=== PATIENT | female | born 1935 ===

== ENCOUNTER 2017-06-22 17:30 | Emergency (ER) | payer MEDICARE, OTHER ==
[2017-06-22 18:23] VITALS: TEMP 96.8
--- NOTE | 2017-06-22 18:25 | ED PDOC ---
Arrival/HPI - History of Present Illness Time/Duration: 1 hour Symptom Onset: Sudden Symptom Course: Resolved Quality: Cramping Severity Level: 3 Activities at Onset: Rest Context: Sitting, Home <FREDI SCHULTZ - Last Filed: 06/22/17 22:02> <Iram Dodd - Last Filed: 06/22/17 22:07> - General Chief Complaint: Dizziness/Lightheaded - History of Present Illness Narrative History of Present Illness (Text): 06/22/17 18:14 81yo F PMH dementia, HTN, pre-diabetes, and HLD who presents with one episode of nausea and vomiting earlier today. Per daughter, the pt was dizzy, vomited and urinated herself an hour prior to presentation. Daughter states that the pt had rice earlier in the morning and a cup of milk when she was feeling nauseous which she threw up. Pt denied feeling dizzy and says she was just nauseous, however the family insists that the pt was dizzy. PMD: Dr. Duke Mora Cardio: Dr. Metz PSH: endarterectomy SHx: denied tobacco, ETOH or substance abuse (FREDI SCHULTZ) Past Medical History - Provider Review Nursing Documentation Reviewed: Yes - Past History Past History: Non-Contributing - Infectious Disease Hx of Infectious Diseases: None - Reproductive Menopause: Yes - Cardiac Hx Cardiac Disorders: Yes Hx Hyperlipemia: Yes Hx Hypertension: Yes - Pulmonary Hx Respiratory Disorders: No - Neurological Hx Neurological Disorder: Yes Hx Dementia: Yes - HEENT Hx HEENT Disorder: No - Endocrine/Metabolic Hx Diabetes Mellitus Type 2: Yes - Psychiatric Hx Substance Use: No - Anesthesia Hx Anesthesia: No <FREDI SCHULTZ - Last Filed: 06/22/17 22:02> Family/Social History - Physician Review Nursing Documentation Reviewed: Yes Family/Social History: No Known Family HX Smoking Status: Unknown If Ever Smoked Hx Alcohol Use: No Hx Substance Use: No <FREDI SCHULTZ - Last Filed: 06/22/17 22:02> Allergies/Home Meds <FREDI SCHULTZ - Last Filed: 06/22/17 22:02> <Iram Dodd - Last Filed: 06/22/17 22:07> Allergies/Adverse Reactions: Allergies aspirin Allergy (Verified 06/22/17 17:47) RASH Home Medications: Home Meds Medication Instructions Recorded Confirmed Amlodipine/Valsartan/Hcthiazid 1 tab PO DAILY 06/22/17 06/22/17 [Nkbttxllfy-Nrovqyfce-Mmoknghlfteegvgmayv 10 M] Memantine HCl/Donepezil HCl 1 each PO DAILY 06/22/17 06/22/17 [Namzaric 28 mg-10 mg Capsule] Review of Systems - Physician Review All systems were reviewed & negative as marked: Yes - Review of Systems Constitutional: Normal. absent: Fatigue, Fevers, Night Sweats Respiratory: absent: SOB, Cough Cardiovascular: Normal. absent: Chest Pain Gastrointestinal: Nausea, Vomiting (x1, non-bloody) <FREDI SCHULTZ - Last Filed: 06/22/17 22:02> Physical Exam Vital Signs Reviewed: Yes Appearance: Positive for: Well-Appearing Pain Distress: None Mental Status: Positive for: Alert and Oriented X 3 - Systems Exam Head: Present: Atraumatic, Normocephalic Pupils: Present: PERRL Extroacular Muscles: Present: EOMI Conjunctiva: Present: Normal Neck: Present: Normal Range of Motion Respiratory/Chest: Present: Clear to Auscultation, Good Air Exchange. No: Respiratory Distress Cardiovascular: Present: Regular Rate and Rhythm, Normal S1, S2 Abdomen: Present: Normal Bowel Sounds. No: Tenderness, Distention, Peritoneal Signs Back: Present: Normal Inspection. No: CVA Tenderness Lower Extremity: Present: Normal Inspection. No: Edema, CALF TENDERNESS Neurological: Present: Speech Normal, Motor Func Grossly Intact, Normal Sensory Function Skin: Present: Warm, Dry Psychiatric: Present: Alert. No: Oriented x 3 (oriented x2 (person and place NOT time)) <FREDI SCHULTZ - Last Filed: 06/22/17 22:02> Vital Signs Temp Pulse Resp BP Pulse Ox 06/22/17 21:10 75 18 175/57 H 96 06/22/17 17:46 96.8 F L 62 17 126/76 97 Medical Decision Making <FREDI SCHULTZ - Last Filed: 06/22/17 22:02> <Iram Dodd - Last Filed: 06/22/17 22:07> ED Course and Treatment: 06/22/17 19:21 Impression: viral gastroenteritis Plan: -- Reassess and disposition - cxr - ekg - ua - labs Progress Notes: patient was reassessed and is resting comfortably w/ no complaints of dizziness , n/v or urination. pt is thirsty. allowing PO water intake as tolerated Creator : Daniel Contreras MD Report Date : 06/22/2017 21:09:00 My Comment : CT Scan HEAD W/O CONTRAST Exam Date: 06/22/17 This imaging exam was performed at [facility] EXAM: CT Head Without Intravenous Contrast CLINICAL HISTORY: 81 years old, female; Signs and symptoms; Dizziness; Additional info: Syncope, dizziness and vomiting today TECHNIQUE: Axial computed tomography images of the head/brain without intravenous contrast. All CT scans at this facility use one or more dose reduction techniques, viz.: automated exposure control; ma/kV adjustment per patient size (including targeted exams where dose is matched to indication; i.e. head); or iterative reconstruction technique. COMPARISON: No relevant prior studies available. FINDINGS: Brain: Mild atrophy. Prominent extra-axial spaces along frontal parietal convexities. No intracranial hemorrhage. No mass. No definite edema. Ventricles: No hydrocephalus. Bones/joints: No acute fracture. Soft tissues: Unremarkable. Sinuses: No acute sinusitis. Mastoid air cells: No mastoid effusion. Orbits: Unremarkable as visualized. IMPRESSION: 1. No acute intracranial abnormality. Acute infarction may be CT occult within first 24 hours. If a focal deficit persists, consider followup CT or MRI for further evaluation. 2. Incidental/non-acute findings are described above. 06/22/17 22:02 Dr. Adrian Guerrero was contacted and accepts patient onto her service (FREDI SCHULTZ) 06/22/17 22:06 Patient with syncopal episode; results in the ED are nodiagnostic. However, given the high risk for acs and neuro disease as the patient is elderly with a h /o DM and HTN, she will need to be placed on observation on tele. Discussed with Dr. Colleen Guerrero for placement on the hospitalist service. (Iram Dodd) - Lab Interpretations Lab Results: 06/22/17 19:00 06/22/17 19:00 Lab Results 06/22/17 19:00: Sodium 139, Potassium 3.7, Chloride 97 L, Carbon Dioxide 30, Anion Gap 16, BUN 17, Creatinine 0.7, Est GFR ( Amer) > 60, Est GFR (Non- Af Amer) > 60, Random Glucose 198 H, Calcium 9.8, Total Bilirubin 0.7, AST 23, ALT 20, Alkaline Phosphatase 86, Lactate Dehydrogenase 476, Total Creatine Kinase 48, Troponin I < 0.01, Total Protein 7.7, Albumin 4.4, Globulin 3.2, Albumin/Globulin Ratio 1.4, Lipase 41 06/22/17 19:00: WBC 6.9 D, RBC 4.81, Hgb 13.2, Hct 38.8, MCV 80.7, MCH 27.4, MCHC 34.0, RDW 13.1, Plt Count 208, MPV 10.6, Gran % 81.4 H, Lymph % (Auto) 14.3 L, [place] % (Auto) 3.9, Eos % (Auto) 0.3 L, Baso % (Auto) 0.1, Gran # 5.61, Lymph # 1.0 L, [place] # 0.3, Eos # 0.0, Baso # 0.01 - RAD Interpretation Radiology Orders: 06/22/17 18:35 CHEST TWO VIEWS (PA/LAT) [RAD] Stat 06/22/17 20:05 Brain [HEAD W/O CONTRAST] [CT] Stat - PA / MILLINERY BLOCKER / Resident Statement CLEMENT has reviewed & agrees with the documentation as recorded. CLEMENT has examined the patient and agrees with the treatment plan. <Iram Dodd - Last Filed: 06/22/17 22:07> Disposition/Present on Arrival - Present on Arrival Any Indicators Present on Arrival: No History of DVT/PE: No History of Uncontrolled Diabetes: No Urinary Catheter: No History of Decub. Ulcer: No History Surgical Site Infection Following: Abdominal Surgery, Orthopedic Procedures, None - Disposition Have Diagnosis and Disposition been Completed?: Yes Disposition Time: 21:56 <FREDI SCHULTZ - Last Filed: 06/22/17 22:02> <Iram Dodd - Last Filed: 06/22/17 22:07> - Disposition Diagnosis: Dizziness, Vomiting Disposition: HOSPITALIZED Patient Problems: Current Active Problems Problem Status Onset Dizziness Acute Vomiting Acute Condition: GOOD Referrals: Michael Mora MD [Primary Care Provider] - Follow up with primary Forms: [employer] (Slovak)
[2017-06-22 19:44] LABS: BASO # 0.01 K/mm3 (0.0-2.0); BASO % 0.1 % (0.0-3.0); EOS % 0.3 % (1.5-5.0); GRAN # 5.61 (1.4-6.5); GRAN % 81.4 % (50.0-68.0); HEMATOCRIT 38.8 % (36.0-48.0); LYMPH % 14.3 % (22.0-35.0); MEAN CELL VOLUME 80.7 fl (80.0-105.0); MEAN CORPUSCULAR HEMOGLOBIN 27.4 pg (25.0-35.0); MEAN PLATELET VOLUME 10.6 fl (7.0-11.0); MONO # 0.3 (0.1-0.6); MONO % 3.9 % (1.0-6.0); RED CELL DISTRIBUTION WIDTH 13.1 % (11.5-14.5); WHITE BLOOD COUNT 6.9 10^3/ul (4.5-11.0)
[2017-06-22 20:00] LABS: ALB/GLOB RATIO 1.4 (1.1-1.8); ALKALINE PHOSPHATASE 86 U/L (38-126); ALT/SGPT 20 U/L (7-56); AST/SGOT 23 U/L (14-36); BILIRUBIN,TOTAL 0.7 mg/dL (0.2-1.3); BLOOD UREA NITROGEN 17 mg/dL (7-21); CALCIUM 9.8 mg/dL (8.4-10.5); CARBON DIOXIDE 30 mmol/L (21-33); CHLORIDE 97 mmol/L (98-107); GFR AFRICAN-AMERICAN > 60; GLUCOSE,RANDOM 198 mg/dL (70-110); LIPASE 41 U/L (23-300); POTASSIUM 3.7 mmol/L (3.6-5.0); SODIUM 139 mmol/L (132-148); TOTAL PROTEIN 7.7 g/dL (5.8-8.3)
[2017-06-22 20:11] LABS: TROPONIN I < 0.01 ng/mL
--- NOTE | 2017-06-22 21:09 | CT ---
EXAM: CT Head Without Intravenous Contrast CLINICAL HISTORY: 81 years old, female; Signs and symptoms; Dizziness; Additional info: Syncope, dizziness and vomiting today TECHNIQUE: Axial computed tomography images of the head/brain without intravenous contrast. All CT scans at this facility use one or more dose reduction techniques, viz.: automated exposure control; ma/kV adjustment per patient size (including targeted exams where dose is matched to indication; i.e. head); or iterative reconstruction technique. COMPARISON: No relevant prior studies available. FINDINGS: Brain: Mild atrophy. Prominent extra-axial spaces along frontal parietal convexities. No intracranial hemorrhage. No mass. No definite edema. Ventricles: No hydrocephalus. Bones/joints: No acute fracture. Soft tissues: Unremarkable. Sinuses: No acute sinusitis. Mastoid air cells: No mastoid effusion. Orbits: Unremarkable as visualized. IMPRESSION: 1. No acute intracranial abnormality. Acute infarction may be CT occult within first 24 hours. If a focal deficit persists, consider followup CT or MRI for further evaluation. 2. Incidental/non-acute findings are described above.
[2017-06-22 21:11] VITALS: RESP 18
[2017-06-22 23:12] VITALS: BP 158/72; PULSE 78; O2SAT 98
--- NOTE | 2017-06-23 05:00 | CP.PCM.HP ---
History of Present Illness - History of Present Illness History of Present Illness: H/P For IM - TKS DO, PGY-1 CC: N/V HPI: 81 F presented with one episode of N/V and also complained of confusion. Patient's daughter stated that she also felt dizzy and lost control of her bladder. Pt does not agree that she felt dizzy, just nauseas which made her feel weak to stand or sit up. When I saw the patient, she and her daughter both stated that pt feels completely fine, no longer feels nauseas nor does she feel weak. She believes the rice she ate earlier just made her sick to her stomach. Pt denies f/ch/cp/sob/n/v/d. Pt denies hematuria/dysuria/frequency/urgency/ malodorous urine. Pt further denies hematochezia/hematemesis. She states she does not have a matta, is not dizzy, and per daughter, pt is at her baseline mentation. No further complaints. PSHx: Endarterectomy PMHx: Dementia, HTN, Pre-diabetes, and HLD All: SocHx: Pt denies tobacco, etoh, illicits Hosp: FamHx: Non-contributory Meds: Amlodipine, Memantine PMD: Dr. Duke Mora Cardio: Dr. Metz Present on Admission - Present on Admission Any Indicators Present on Admission: No Review of Systems - Hematologic/Lymphatic Additional comments: ROS: Constitutional: pt denies fever, chills, generalized weakness ENT: pt denies dysphagia, otalgia, hearing deficit, rhinorrhea Eyes: pt denies sudden loss of vision, diplopia, blurred vision MSK: pt denies muscle stiffness, joint pain, extremity cramping Cardio: pt denies sob, heart murmur, cp Pulm: pt denies cough, hemoptysis, wheeze GI: See HPI; pt denies loss of appetite, abdominal pain, constipation, melena : pt denies burning on urination, urinary frequency, hematuria, urinary urgency Neuro: pt denies paresis, paresthesia, dizziness, matta, numbness, tingling Derm: pt denies skin changes, lesions, nail changes Endo: pt denies intolerance to heat/cold, diaphoresis, night sweats, polydipsia Psych: pt denies anxiety, depression, mood changes Past Patient History - Infectious Disease Hx of Infectious Diseases: None - Past Social History Smoking Status: Unknown If Ever Smoked - CARDIAC Hx Cardiac Disorders: Yes Hx Hypertension: Yes - PULMONARY Hx Respiratory Disorders: No - NEUROLOGICAL Hx Neurological Disorder: Yes Hx Dementia: Yes - HEENT Hx HEENT Problems: No - ENDOCRINE/METABOLIC Hx Diabetes Mellitus Type 2: Yes - PSYCHIATRIC Hx Substance Use: No - ANESTHESIA Hx Anesthesia: No Meds Allergies/Adverse Reactions: Allergies Allergy/AdvReac Type Severity Reaction Status Date / Time aspirin Allergy RASH Verified 06/22/17 17:47 Physical Exam - Additional Findings Additional findings: Phys Exam: VS as below Constitutional: a&o x 2 (person and place), nad. Psych: +pt is pleasantly confused, but daughter states at her baseline Head and Neck: neck supple, no jvd, trachea midline, carotid midline, no cervical/head mass Eyes: brittany, nonicteric sclera, eom intact ENT: auditory acuity grossly intact, throat not congested, no nasal deformity Cardio: rrr, no m/r/g, no carotid bruit, nml s1, s2 Pulm: no accessory muscle use, equal nml breath sounds bilaterally, ctab Abd: s/nt/nd, nbs x 4 q, no palpable masses Derm: no rashes, no ulcers, no lesions Extr: no edema, no cyanosis, no calf tenderness, no lesions, no varicosities Neuro: cn II-XII grossly intact, ue and le 5/5 muscle strength bilaterally, no los ue, le bilaterally and core Results - Vital Signs Recent Vital Signs: Last Vital Signs Temp 96.8 F L 06/22/17 17:46 Pulse 78 06/22/17 23:11 Resp 18 06/22/17 23:11 BP 158/72 H 06/22/17 23:11 Pulse Ox 98 06/22/17 23:11 - Labs Result Diagrams: 06/22/17 19:00 06/22/17 19:00 Labs: Laboratory Results - last 24 hr 06/22/17 06/22/17 19:00 19:00 WBC 6.9 D RBC 4.81 Hgb 13.2 Hct 38.8 MCV 80.7 MCH 27.4 MCHC 34.0 RDW 13.1 Plt Count 208 MPV 10.6 Gran % 81.4 H Lymph % (Auto) 14.3 L [place] % (Auto) 3.9 Eos % (Auto) 0.3 L Baso % (Auto) 0.1 Gran # 5.61 Lymph # 1.0 L [place] # 0.3 Eos # 0.0 Baso # 0.01 Sodium 139 Potassium 3.7 Chloride 97 L Carbon Dioxide 30 Anion Gap 16 BUN 17 Creatinine 0.7 Est GFR ( Amer) > 60 Est GFR (Non-Af Amer) > 60 Random Glucose 198 H Calcium 9.8 Total Bilirubin 0.7 AST 23 ALT 20 Alkaline Phosphatase 86 Lactate Dehydrogenase 476 Total Creatine Kinase 48 Troponin I < 0.01 Total Protein 7.7 Albumin 4.4 Globulin 3.2 Albumin/Globulin Ratio 1.4 Lipase 41 Assessment & Plan - Assessment and Plan (Free Text) Assessment: A/P 81 F presented with n/v likely 2/2 gastroenteritis from food Patient AMA - Advised patient on risks of leaving, including possible falls, worsening confusion, possible infection, worsening gastroenteritis, possible permanent disability and even possible . Patient and her daughter understood, but still wanted to leave. Signatures were obtained. TKS DO PGY-1, DW Dr. Adrian Guerrero
--- NOTE | 2017-06-23 05:19 | CP.PCM.DIS ---
<EstefaníaAugie - Last Filed: 06/23/17 05:20> Provider - Provider Primary care physician: Michael Mora MD Time Spent in preparation of Discharge (in minutes): 45 Hospital Course - Lab Results Lab Results: Most Recent Lab Values WBC 6.9 10^3/ul (4.5-11.0) D 06/22/17 19:00 RBC 4.81 10^6/uL (3.5-6.1) 06/22/17 19:00 Hgb 13.2 g/dL (12.0-16.0) 06/22/17 19:00 Hct 38.8 % (36.0-48.0) 06/22/17 19:00 MCV 80.7 fl (80.0-105.0) 06/22/17 19:00 MCH 27.4 pg (25.0-35.0) 06/22/17 19:00 MCHC 34.0 g/dl (31.0-37.0) 06/22/17 19:00 RDW 13.1 % (11.5-14.5) 06/22/17 19:00 Plt Count 208 10^3/uL (120.0-450.0) 06/22/17 19:00 MPV 10.6 fl (7.0-11.0) 06/22/17 19:00 Gran % 81.4 % (50.0-68.0) H 06/22/17 19:00 Lymph % (Auto) 14.3 % (22.0-35.0) L 06/22/17 19:00 [place] % (Auto) 3.9 % (1.0-6.0) 06/22/17 19:00 Eos % (Auto) 0.3 % (1.5-5.0) L 06/22/17 19:00 Baso % (Auto) 0.1 % (0.0-3.0) 06/22/17 19:00 Gran # 5.61 (1.4-6.5) 06/22/17 19:00 Lymph # 1.0 (1.2-3.4) L 06/22/17 19:00 [place] # 0.3 (0.1-0.6) 06/22/17 19:00 Eos # 0.0 (0.0-0.7) 06/22/17 19:00 Baso # 0.01 K/mm3 (0.0-2.0) 06/22/17 19:00 Sodium 139 mmol/L (132-148) 06/22/17 19:00 Potassium 3.7 mmol/L (3.6-5.0) 06/22/17 19:00 Chloride 97 mmol/L (98-107) L 06/22/17 19:00 Carbon Dioxide 30 mmol/L (21-33) 06/22/17 19:00 Anion Gap 16 (10-20) 06/22/17 19:00 BUN 17 mg/dL (7-21) 06/22/17 19:00 Creatinine 0.7 mg/dL (0.5-1.4) 06/22/17 19:00 Est GFR ( Amer) > 60 06/22/17 19:00 Est GFR (Non-Af Amer) > 60 06/22/17 19:00 Random Glucose 198 mg/dL (70-110) H 06/22/17 19:00 Calcium 9.8 mg/dL (8.4-10.5) 06/22/17 19:00 Total Bilirubin 0.7 mg/dL (0.2-1.3) 06/22/17 19:00 AST 23 U/L (14-36) 06/22/17 19:00 ALT 20 U/L (7-56) 06/22/17 19:00 Alkaline Phosphatase 86 U/L (38-126) 06/22/17 19:00 Lactate Dehydrogenase 476 U/L (333-699) 06/22/17 19:00 Total Creatine Kinase 48 U/L (35-230) 06/22/17 19:00 Troponin I < 0.01 ng/mL 06/22/17 19:00 Total Protein 7.7 g/dL (5.8-8.3) 06/22/17 19:00 Albumin 4.4 g/dL (3.0-4.8) 06/22/17 19:00 Globulin 3.2 gm/dL 06/22/17 19:00 Albumin/Globulin Ratio 1.4 (1.1-1.8) 06/22/17 19:00 Lipase 41 U/L (23-300) 06/22/17 19:00 - Hospital Course Hospital Course: 81 F presented with one episode of N/V and also complained of confusion. Patient's daughter stated that she also felt dizzy and lost control of her bladder. Pt does not agree that she felt dizzy, just nauseas which made her feel weak to stand or sit up. When I saw the patient, she and her daughter both stated that pt feels completely fine, no longer feels nauseas nor does she feel weak. She believes the rice she ate earlier just made her sick to her stomach. Pt denies f/ch/cp/sob/n/v/d. Pt denies hematuria/dysuria/frequency/urgency/ malodorous urine. Pt further denies hematochezia/hematemesis. She states she does not have a matta, is not dizzy, and per daughter, pt is at her baseline mentation. No further complaints. Patient AMA - Advised patient on risks of leaving, including possible falls, worsening confusion, possible infection, worsening gastroenteritis, possible permanent disability and even possible . Patient and her daughter understood, but still wanted to leave. Signatures were obtained Discharge Exam - Additional Findings Additional findings: VS as below Constitutional: a&o x 2 (place and person), nad; Pleasantly confused, but at baseline according to daughter Head and Neck: neck supple, no jvd, trachea midline, carotid midline, no cervical/head mass Eyes: brittany, nonicteric sclera, eom intact ENT: auditory acuity grossly intact, throat not congested, no nasal deformity Cardio: rrr, no m/r/g, no carotid bruit, nml s1, s2 Pulm: no accessory muscle use, equal nml breath sounds bilaterally, ctab Abd: s/nt/nd, nbs x 4 q, no palpable masses Derm: no rashes, no ulcers, no lesions Extr: no edema, no cyanosis, no calf tenderness, no lesions, no varicosities Neuro: cn II-XII grossly intact, ue and le 5/5 muscle strength bilaterally, no los ue, le bilaterally and core Discharge Plan - Follow Up Plan Condition: GOOD Disposition: AGAINST MEDICAL ADVICE Patient education suggested?: No Referrals: Michael Mora MD [Primary Care Provider] - <Jael Guerrero - Last Filed: 06/26/17 23:13> Provider - Provider Primary care physician: Michael Mora MD Hospital Course - Lab Results Lab Results: Most Recent Lab Values WBC 6.9 10^3/ul (4.5-11.0) D 06/22/17 19:00 RBC 4.81 10^6/uL (3.5-6.1) 06/22/17 19:00 Hgb 13.2 g/dL (12.0-16.0) 06/22/17 19:00 Hct 38.8 % (36.0-48.0) 06/22/17 19:00 MCV 80.7 fl (80.0-105.0) 06/22/17 19:00 MCH 27.4 pg (25.0-35.0) 06/22/17 19:00 MCHC 34.0 g/dl (31.0-37.0) 06/22/17 19:00 RDW 13.1 % (11.5-14.5) 06/22/17 19:00 Plt Count 208 10^3/uL (120.0-450.0) 06/22/17 19:00 MPV 10.6 fl (7.0-11.0) 06/22/17 19:00 Gran % 81.4 % (50.0-68.0) H 06/22/17 19:00 Lymph % (Auto) 14.3 % (22.0-35.0) L 06/22/17 19:00 [place] % (Auto) 3.9 % (1.0-6.0) 06/22/17 19:00 Eos % (Auto) 0.3 % (1.5-5.0) L 06/22/17 19:00 Baso % (Auto) 0.1 % (0.0-3.0) 06/22/17 19:00 Gran # 5.61 (1.4-6.5) 06/22/17 19:00 Lymph # 1.0 (1.2-3.4) L 06/22/17 19:00 [place] # 0.3 (0.1-0.6) 06/22/17 19:00 Eos # 0.0 (0.0-0.7) 06/22/17 19:00 Baso # 0.01 K/mm3 (0.0-2.0) 06/22/17 19:00 Sodium 139 mmol/L (132-148) 06/22/17 19:00 Potassium 3.7 mmol/L (3.6-5.0) 06/22/17 19:00 Chloride 97 mmol/L (98-107) L 06/22/17 19:00 Carbon Dioxide 30 mmol/L (21-33) 06/22/17 19:00 Anion Gap 16 (10-20) 06/22/17 19:00 BUN 17 mg/dL (7-21) 06/22/17 19:00 Creatinine 0.7 mg/dL (0.5-1.4) 06/22/17 19:00 Est GFR ( Amer) > 60 06/22/17 19:00 Est GFR (Non-Af Amer) > 60 06/22/17 19:00 POC Glucose (mg/dL) 97 mg/dL (65-110) 06/22/17 18:05 Random Glucose 198 mg/dL (70-110) H 06/22/17 19:00 Calcium 9.8 mg/dL (8.4-10.5) 06/22/17 19:00 Total Bilirubin 0.7 mg/dL (0.2-1.3) 06/22/17 19:00 AST 23 U/L (14-36) 06/22/17 19:00 ALT 20 U/L (7-56) 06/22/17 19:00 Alkaline Phosphatase 86 U/L (38-126) 06/22/17 19:00 Lactate Dehydrogenase 476 U/L (333-699) 06/22/17 19:00 Total Creatine Kinase 48 U/L (35-230) 06/22/17 19:00 Troponin I < 0.01 ng/mL 06/22/17 19:00 Total Protein 7.7 g/dL (5.8-8.3) 06/22/17 19:00 Albumin 4.4 g/dL (3.0-4.8) 06/22/17 19:00 Globulin 3.2 gm/dL 06/22/17 19:00 Albumin/Globulin Ratio 1.4 (1.1-1.8) 06/22/17 19:00 Lipase 41 U/L (23-300) 06/22/17 19:00
--- NOTE | 2017-06-23 09:35 | RAD ---
HISTORY: dizziness COMPARISON: No prior. TECHNIQUE: Chest PA and lateral FINDINGS: LUNGS: No active pulmonary disease. PLEURA: No significant pleural effusion identified. No pneumothorax apparent. CARDIOVASCULAR: Normal. OSSEOUS STRUCTURES: No significant abnormalities. VISUALIZED UPPER ABDOMEN: Normal. OTHER FINDINGS: None. IMPRESSION: No acute cardiopulmonary disease appreciated.
[2017-06-23] MEDS ORDERED: MEMANTINE HCL PO SCH (10:00)
[2017-06-23] MEDS ORDERED: DONEPEZIL HCL PO SCH (10:00)
--- NOTE | 2017-06-23 11:39 | CARD ---
APPROVED REPORT EKG Measurement Heart [id number] <Conclusion> Normal sinus rhythm Normal ECG
== END 2017-06-22 23:12 | disposition left against medical advice (07) ==
LOC: ED 17:30 → UNDOADMOB 22:07 → ERH 22:07
DX: R42 Dizziness and giddiness (principal); R11.10 Vomiting, unspecified; I10 Essential (primary) hypertension; R73.03 Prediabetes; F03.90 Unspecified dementia, unspecified severity, without behavioral disturbance, psychotic disturbance, mood disturbance, and anxiety